=== PATIENT | female | born 1980 | race Caucasian/White ===

== ENCOUNTER 2018-09-29 13:09 | Emergency (ER) | payer OTHER ==
[~2018-09-29] VITALS: Ht 170.2 cm; Wt 72.6 kg
[2018-09-29 13:47] VITALS: Ht 170.2 cm; Wt 72.6 kg
[2018-09-29 15:32] VITALS: BP 120/82
== END 2018-09-29 15:32 | disposition home or self-care (01) ==
LOC: ED 13:09
DX: M54.5 Low back pain (principal); I34.1 Nonrheumatic mitral (valve) prolapse
CPT/HCPCS: J1885

== ENCOUNTER 2019-05-16 16:38 | Inpatient (IN) | payer OTHER ==
[~2019-05-16] VITALS: Ht 165.1 cm; Wt 69.0 kg
--- NOTE | 2019-05-16 17:28 | NUR ---
PT COMES INTO ER WITH C/O SOB THATSTARTED THIS AM WHILE DOING GNOTHING, PER PT STATES TJIS HAS HAPPENED BEFORE AND BEEN TOLD SHE HAS A HEART PROBLEM AND TAKING ATENOLOL. ALSO REPORTS MILD CHEST PAIN WITH DEEP BREATHS. PRODUCTIVE COUGH/YELLOW PHLEGM X 5-6 DAYS. DENIES ANY FEVERS/CHILLS. DENIES ANY PALPITATIONS. PT SPEAKINGIN FULL CLEARSENTENCES, SKIN W/D/I. RESP EVEN AND UNALBORED, ON RA @99%. WAIITNG FOR MSE.
[2019-05-16 17:31] LABS: PLATELET COUNT 253 x10^3mcL (130-400)
[2019-05-16 17:35] LABS: RED CELL DISTRIBUTION WIDTH 15.9 % (11.5-14.5)
[2019-05-16 17:38] LABS: CALCIUM 8.9 mg/dL (8.5-10.1); CARBON DIOXIDE 25.8 mmol/L (21-32); CHLORIDE SERUM 106 mmol/L (98-107); CREATININE SERUM 0.9 mg/dL (0.6-1.0); GFR1 > 60 mL/min; GLUCOSE SERUM 119 mg/dL (74-106); POTASSIUM SERUM 3.9 mmol/L (3.5-5.1); SODIUM SERUM 142 mmol/L (136-145)
[2019-05-16 17:42] LABS: ALBUMIN 3.9 g/dL (3.4-5.0); ALKALINE PHOSPHATASE 62 U/L (46-116); ALT/SGPT 15 U/L (14-59); AST/SGOT 13 U/L (15-37); BILIRUBIN TOTAL 0.34 mg/dL (0.20-1.00)
--- NOTE | 2019-05-16 18:12 | NUR ---
PT REFUSED NITRO PASTE, STATES SHE HAS NO CHEST PAIN, BUT TOOK NTG SL, DR MCKENZIE INFORMED.
[2019-05-16] MEDS ORDERED: ATENOLOL25 MG PO (19:12)
[2019-05-16] MEDS ORDERED: SERTRALINE25 M1 PO (19:18)
--- NOTE | 2019-05-16 19:18 | NUR ---
RECEIVED PT FROM ER DAY SHIFT NURSE, RESUMING THE CARE, PT IS AAO X 4 AND RESTING IN BED APPEARS COMFORTABLE, DENIES ANY PAIN OR DISCOMFORT AT THIS TIME, POC DISCUSSED, MED RX UPDATED.
--- NOTE | 2019-05-16 19:27 | NUR ---
DR BEE AT BEDSIDE AND BETH LERMA.
--- NOTE | 2019-05-16 19:40 | NUR ---
REPORT CALLED TO KAVITHA, ALL QUESTIONS ANSWERED AND CONCERNS ADDRESSED.
[2019-05-16 19:43] LABS: T3 TOTAL 0.84 ng/mL
[2019-05-16 19:44] LABS: CHOLESTEROL/HDL RATIO 3.7
[2019-05-16 19:50] LABS: FREE T4 1.06 ng/dL (0.76-1.46); FREE THYROXINE INDEX 2.8 ug/dL (1.4-4.5); T4(THYROXINE) 8.4 ug/dL (4.7-13.3)
[2019-05-16 20:10] VITALS: BP 110/68
--- NOTE | 2019-05-16 20:16 | NUR ---
RECEIVED PT FROM ED VIA RK. ORIENTED PT TO ROOM AND SURROUNDINGS. IV NOTED TO RH PATENT AND INTACT. TELE 20 PLACED ON PT READING SBR. INSTRUCTED PT ON THE USE OF CALL LIGHT FOR ASSISTANCE. ENDORSED PT TO PRIMARY NURSE CELESTE
--- NOTE | 2019-05-16 21:36 | NUR ---
RESTING QUIETLY IN BED, NEW ADM. FROM ED.A/O X4. ABLE TO VERBALIZE NEEDS. DENIES HEADACHE/DIZZINESS. RESP. EVEN AND UNLABORED. LUNG SOUNDS CLEAR BILAT. ON ROOM AIR, NO ACUTE DISTRESS NOTED. SB ON THE MONITOR, HR 57 AT THIS TIME. DENIES CHEST PAIN OR ANY DISCOMFORT. AFEBRILE AND VITAL SIGNS STABLE. STARTED ON IVF, NS AT 100ML/HR, INTACT AND INFUSING VIA RT HAND, SITE CLEAR. AMBULATORY. SKIN WARM AND DRY TO TOUCH, INTACT, NO EDEMA NOTED. KEPT COMFORTABLE.CALL LIGHT WITHIN REACH. WILL CONTINUE TO MONITOR.
--- NOTE | 2019-05-17 00:28 | NUR ---
RESTING QUIETLY IN BED, EYES CLOSED, APPEARS ASLEEP, EASILY AROUSABLE. RESP. EVEN AND UNLABORED.NO ACUTE DISTRESS NOTED. WILL CONTINUE TO MONITOR.
[2019-05-17 05:10] VITALS: BP 94/43
[2019-05-17 05:14] VITALS: BP 122/84
[2019-05-17 06:09] LABS: BASOPHIL % 0.9 % (0-2); PLATELET COUNT 186 x10^3mcL (130-400)
--- NOTE | 2019-05-17 06:24 | NUR ---
SLEPT WELL. NO COMPLAINTS NOTED. DENIES CHEST PAIN OR ANY DISCOMFORT. VOIDING FREELY. URINE SPECIMEN OBTAINED AND SENT TO LAB. KEPT COMFORTABLE. IVF INTACT AND INFUSING WELL, SITE CLEAR.AFEBRILE AND VITAL SIGNS STABLE. WILL CONTINUE TO MONITOR.
[2019-05-17 06:58] LABS: CALCIUM 7.7 mg/dL (8.5-10.1); CARBON DIOXIDE 25.3 mmol/L (21-32); CHLORIDE SERUM 111 mmol/L (98-107); CREATININE SERUM 0.6 mg/dL (0.6-1.0); GFR1 > 60 mL/min; GLUCOSE SERUM 99 mg/dL (74-106); POTASSIUM SERUM 4.7 mmol/L (3.5-5.1); SODIUM SERUM 146 mmol/L (136-145)
--- NOTE | 2019-05-17 07:01 | NUR ---
RECEIVED PT FROM CLASSIFIED COPY CONTROL CLERK NURSE. PT RESTING IN BED, AOX4, RESP E/U ON RA. DENIES CP AT THIS TIME, NO ACUTE DISTRESS NOTED. ON TELE 20 SHOWING NSR, HR: 69. IV TO R HAND W/ NO SIGNS OF INFILTRATION, IVF INFUSING WELL. BED IN LOWEST POSITION AND CALL LIGHT WITHIN REACH. WILL CONTINUE TO MONITOR.
[2019-05-17 07:42] LABS: UA SPECIFIC GRAVITY 1.025 (1.005-1.035); microscopic required? YES; urine erythrocyte NEGATIVE (NEGATIVE)
[2019-05-17 07:56] LABS: AMPHETAMINE QUAL UR NONE DETECTED (See below)
[2019-05-17 08:11] VITALS: BP 113/74
[2019-05-17 12:06] VITALS: BP 120/60
--- NOTE | 2019-05-17 12:58 | NUR ---
PT RESTING IN BED, AOX4, RESP E/U ON RA. REPORTED MILD CP BUT TOLERABLE, DENIES SOB, NO REQUEST FOR PAIN MEDS AT THIS TIME. COMFORT MEASURES IMPLEMENTED. BED IN LOWEST POSITION AND CALL LIGHT WITHIN REACH. WILL CONTINUE TO MONITOR.
[2019-05-17 17:25] VITALS: BP 105/65
--- NOTE | 2019-05-17 18:10 | NUR ---
PT RESTING IN BED, AOX4, RESP E/U ON RA. DENIES CP OR SOB, NO ACUTE DISTRESS NOTED. IV TO R HAND W/ NO SIGNS OF INFILTRATION, IVF INFUSING WELL. BED IN LOWEST POSITION AND CALL LIGHT WITHIN REACH. WILL ENDORSE TO ONCOMING NURSE.
[2019-05-17] MEDS ORDERED: CIPRO250 MG PO (19:03)
[2019-05-17 19:15] VITALS: BP 105/65
--- NOTE | 2019-05-17 19:35 | NUR ---
DISCHARGE HOME ORDER RECEIVED. PT A/O X4, DENIES CHEST PAIN OR ANY DISCOMFORT AT THIS TIME. AFEBRILE AND VITAL SIGNS STABLE. IVF AND TELE DISCONT. PRESCRIPTION AND DISCHARGE INSTRUCTIONS GIVEN TO PT AND . BOTH VERBALIZED UNDERSTANDING.PERSONAL BELONGINGS GIVEN TO PT. DISCHARGED HOME ORDERED. ACCOMPANIED BY HER .
== END 2019-05-17 19:39 | disposition home or self-care (01) | DRG 203 ==
LOC: ED 16:38 → DU 18:59
PROVIDERS: ADMIT Internal Medicine
DX: M94.0 Chondrocostal junction syndrome [Tietze] (principal); F17.290 Nicotine dependence, other tobacco product, uncomplicated; K21.9 Gastro-esophageal reflux disease without esophagitis; F32.9 Major depressive disorder, single episode, unspecified; Z71.6 Tobacco abuse counseling; N39.0 Urinary tract infection, site not specified
CPT/HCPCS: 83880; 84439; 99406; G0378; J0696; J7030